=== PATIENT | male | born 1950 | race Two or more races ===

== ENCOUNTER 2025-03-21 15:53 | Emergency (ER) | payer OTHER ==
[~2025-03-21] VITALS: Ht 177.8 cm; Wt 104.3 kg
[2025-03-21 17:10] LABS: PLATELET COUNT (AUTO) 230 K/uL (150-450); RED BLOOD CELL COUNT(AUTO) 4.89 MIL/uL (4.5-6.0); RED CELL DISTRIBUTION WIDTH 14.1 % (11.5-15.0); WHITE BLOOD COUNT (AUTO) 6.8 K/uL (4.3-11.0)
[2025-03-21 17:24] LABS: CALCIUM, SERUM 8.9 mg/dL (8.5-10.1); CREATININE 1.2 mg/dL (0.6-1.3); SODIUM SERUM 137 mmol/L (136-145); UREA NITROGEN, BLOOD 9 mg/dL (7-18)
[2025-03-21 17:36] LABS: NT-PRO BNP 56 pg/mL (0-125)
[2025-03-21 19:15] VITALS: BP 125/77; TEMP 98.2; O2SAT 96
== END 2025-03-21 19:16 | disposition home or self-care (01) ==
LOC: ER 16:11
DX: R06.00 Dyspnea, unspecified (principal); R91.8 Other nonspecific abnormal finding of lung field; R94.31 Abnormal electrocardiogram [ECG] [EKG]; Z20.822 Contact with and (suspected) exposure to COVID-19
CPT/HCPCS: 36415; 71045-TC; 80048-TC; 83880; 84484-TC; 85025-TC; 85378-TC

== ENCOUNTER 2025-04-04 12:28 | Emergency (ER) | payer OTHER ==
[~2025-04-04] VITALS: Ht 175.3 cm; Wt 96.2 kg
[2025-04-04 13:07] LABS: PLATELET COUNT (AUTO) 234 K/uL (150-450); RED BLOOD CELL COUNT(AUTO) 5.05 MIL/uL (4.5-6.0); RED CELL DISTRIBUTION WIDTH 13.8 % (11.5-15.0); WHITE BLOOD COUNT (AUTO) 7.8 K/uL (4.3-11.0)
[2025-04-04 13:14] LABS: CALCIUM, SERUM 9.2 mg/dL (8.5-10.1); CREATININE 1.2 mg/dL (0.6-1.3); SODIUM SERUM 136 mmol/L (136-145); UREA NITROGEN, BLOOD 11 mg/dL (7-18)
[2025-04-04] MEDS ORDERED: LET SOLN TOPICAL 8 ML UDC TP ONE (13:17)
[2025-04-04] MEDS: LET SOLN TOPICAL 8 ML UDC TP ONE (13:26)
[2025-04-04 13:28] LABS: NT-PRO BNP 52 pg/mL (0-125)
[2025-04-04] MEDS ORDERED: IV NS 0.9% 250 ML IV ONE (13:35)
[2025-04-04] MEDS ORDERED: IOHEXOL-350 100 ML VIAL IV ONE (13:35)
[2025-04-04 15:11] VITALS: BP 140/80; TEMP 98.7; O2SAT 98
[2025-04-04] MEDS ORDERED: BENZ-13 PO (15:24)
== END 2025-04-04 15:12 | disposition home or self-care (01) ==
LOC: ER 12:32
DX: R06.09 Other forms of dyspnea (principal); Z98.890 Other specified postprocedural states; Z85.89 Personal history of malignant neoplasm of other organs and systems
CPT/HCPCS: 99285; 71275; 71045; 93005 ×2; 85025; 80048; 36415; 84484; 83880; J7050; Q9967